=== PATIENT | male | born 1985 | race African-American/Black ===

== ENCOUNTER → 2019-06-19 | Outpatient (CLI) | payer OTHER ==
--- NOTE | 2019-06-19 12:55 | REP ---
Left knee five views: Mineralization and joint spaces are normal. There is no fracture or dislocation. There are no calcifications or foreign bodies. Questionable suprapatellar effusion. Impression: Questionable suprapatellar effusion, otherwise, negative left knee. Electronically Signed by Mitch Zabala MD 06/19/2019 12:46 P
== END ==
LOC: M LRY 12:28
PROVIDERS: ATTEND Physician Assistant
DX: S89.92XA Unspecified injury of left lower leg, initial encounter (principal); W18.30XA Fall on same level, unspecified, initial encounter; Y92.009 Unspecified place in unspecified non-institutional (private) residence as the place of occurrence of the external cause

== ENCOUNTER 2020-05-28 07:49 | Inpatient (IN) | payer OTHER ==
[~2020-05-28] VITALS: Ht 170.2 cm; Wt 85.6 kg
[2020-05-28] MEDS ORDERED: ACET1TAB16 PO (08:02)
[2020-05-28 08:52] LABS: BASO % 0.2 % (0.0-1.0); EOS # 0.1 10^3/uL (0.0-0.5); EOS % 1.2 % (0.0-3.0); HEMATOCRIT 46.2 % (42.0-52.0); HEMOGLOBIN 14.7 g/dl (13.5-17.5); LYMPH # 1.6 10^3/uL (1.5-5.0); LYMPH % 16.7 % (24.0-44.0); MEAN CORPUSCULAR HEMOGLOBIN 29.3 pg (27.0-33.0); MEAN CORPUSCULAR HGB CONC 31.8 g/dl (32.0-36.5); MONO # 0.7 10^3/uL (0.0-0.8); MONO % 7.8 % (0.0-5.0); NEUTROPHILS # 6.9 10^3/uL (1.5-8.5); NEUTROPHILS % 73.6 % (36.0-66.0); PLATELET COUNT, AUTOMATED 316 10^3/uL (150-450); RED BLOOD COUNT 5.02 10^6/uL (4.30-6.10); WHITE BLOOD COUNT 9.4 10^3/uL (4.0-10.0)
--- NOTE | 2020-05-28 09:02 | REP ---
INDICATION: hemoptysis, cough, recent knee surgery 05/25/2020 COMPARISON: None. TECHNIQUE: PA and lateral. FINDINGS: The mediastinum and cardiac silhouette are normal. The lung burch demonstrate diffuse bilateral opacities which appear to extend from the perihilar regions. Differential diagnosis includes pulmonary edema as well as multifocal pneumonia. Correlation is required. No effusion. No pneumothorax. IMPRESSION: Moderate to significant bilateral primarily perihilar opacities. <Electronically signed by Eloy Obregon > 05/28/20 [id number]
[2020-05-28 09:14] LABS: INR 1.02; PROTHROMBIN TIME 13.6 SECONDS (12.5-14.3)
[2020-05-28 09:16] LABS: D-DIMER QUANT 1245.08 ng/ml (<500)
[2020-05-28 09:34] LABS: BLOOD UREA NITROGEN 12 MG/DL (7-18); CALCIUM LEVEL 9.2 MG/DL (8.5-10.1); CARBON DIOXIDE LEVEL 29 mmol/L (20-29); CHLORIDE LEVEL 103 MEQ/L (98-107); CREATININE FOR GFR 1.25 MG/DL (0.70-1.30); GLOMERULAR FILTRATION RATE > 60.0 (>60); GLUCOSE, FASTING 111 MG/DL (70-100); POTASSIUM SERUM 3.8 MEQ/L (3.5-5.1); SODIUM LEVEL 137 MEQ/L (136-145)
[2020-05-28 09:39] LABS: RSV AMPLIFICATION NEGATIVE (NEGATIVE)
[2020-05-28 09:53] LABS: PARTIAL THROMBOPLASTIN TIME 28.3 SECONDS (24.2-38.5)
[2020-05-28] MEDS ORDERED: cefTRIAXone SOD 2 GM in D5W MINI-BAG PLUS 50 ML IV ONE (10:00)
[2020-05-28] MEDS ORDERED: ACETAMINOPHEN 500 MG TAB PO ONE (10:00)
[2020-05-28] MEDS ORDERED: LevoFLOXacin IV 750 MG in IV 1 EA IV ONE (10:00)
[2020-05-28] MEDS ORDERED: ISOVUE-370 76% 100ML VIAL As Ordered ONE (10:04)
--- NOTE | 2020-05-28 10:29 | REP ---
INDICATION: hemoptyisis, ro PE, multifocal pneumonia xray, recent sx COMPARISON: None. TECHNIQUE: Axial contrast enhanced images from the thoracic inlet to the upper abdomen using pulmonary embolus technique with multiplanar re-formations. 75 ml Isovue 370 intravenous contrast material administered without complication. This CT examination was performed using the following dose reduction techniques: Automated exposure control, adjustment of mA and/or kv according to the patient's size, and use of iterative reconstruction technique. FINDINGS: Satisfactory enhancement of the pulmonary vasculature is achieved and acute pulmonary emboli are identified extending into the right middle lobe (series 401; image 79). Moderate to significant bilateral alveolar infiltrates in a predominantly perihilar/central distribution suggest pulmonary edema and pulmonary hemorrhage. No effusion. No pneumothorax. Tracheobronchial tree is patent. Mediastinum and cardiac silhouette are essentially normal. No cardiomegaly or pericardial effusion. No significant adenopathy. IMPRESSION: 1. Pulmonary emboli to the right middle lobe. 2. Diffuse bilateral alveolar opacities in a predominantly perihilar/central distribution suggesting pulmonary edema/hemorrhage versus acute multifocal pneumonia. <Electronically signed by Eloy Obregon > 05/28/20 [id number]
[2020-05-28] MEDS ORDERED: HEPARIN SOD (PORCINE) 5000UNITS/ML 1ML VIAL/SYRINGE IV ONE (11:00)
[2020-05-28] MEDS ORDERED: HEPARIN DRIP 25,000 UNITS in IV 1 EA IV SCH (11:00)
--- NOTE | 2020-05-28 12:43 | REP ---
INDICATION: known PE, per pulm see if further clots COMPARISON: None. TECHNIQUE: Meade scale and color Doppler evaluation bilateral lower extremities using linear high frequency transducer. FINDINGS: Ultrasound examination of the right and left lower extremity deep venous structures from the common femoral vein to the popliteal vein demonstrates normal compressibility flow and wave patterns in response to respiration and augmentation. There is no evidence for deep venous thrombosis. IMPRESSION: No evidence for deep venous thrombosis. <Electronically signed by Eloy Obregon > 05/28/20 [id number]
--- NOTE | 2020-05-28 12:50 | HPEPDOC ---
[facility] Medical History & Physical Date of Admission May 28, 2020 Date of Service: May 28, 2020 History and Physical CHIEF COMPLAINT: Shortness of breath HISTORY OF PRESENT ILLNESS: 34-year-old male presents for shortness of breath with cough and hemoptysis. He states he has been having left knee pain since about June 2019. This pain has not improved with conservative measures including physical therapy. As such, he underwent left knee surgery on 05/25/20. . He states immediately following surgery, he developed cough, shortness of breath and hemoptysis. This progressed to significant dyspnea on exertion, prompting him to present to the hospital. . He does note right posterolateral chest pain, pleuritic in nature. PAST MEDICAL HISTORY: asthma PAST SURGICAL HISTORY: recent right knee surgery - dr mccarty - 05/25/20 ALLERGIES: Please see below. REVIEW OF SYSTEMS: Negative except as per HPI HOME MEDICATIONS: Please see below. PHYSICAL EXAMINATION: VITAL SIGNS: See below General: NAD, lying comfortably in bed HEENT: NC/AT, EOMI Lungs: CTA B/L Heart: +S1S2, RRR Abd: soft, NT, +BS Ext: left knee bandages in place LABORATORY DATA: See below. MICROBIOLOGY: Please see below. A/P: 34 yo male with PMHx asthma, and recent left knee surgery on 05/25/20 presents for worsening shortness of breath with cough and hemoptysis, found to have multiple PE #PE - heparin gtt for now - admit to PCU/telemetry monitoring - if hemoptysis stabilizes, will likely transition to coumadin - to discuss with ortho - discussed with pulm - assistance appreciated - admit to monitor for worsening hemoptysis - continue with heparin gtt only 48 hours - lower extremity dopplers - no DVT - factor V leiden pending - coagulopathy workup as outpatient given acute thrombosis/anti-coagulation #left knee surgery - ortho c/s pending #DVT prophylaxis - as above Vital Signs Vital Signs Date Time Temp Pulse Resp B/P (MAP) Pulse Ox O2 Delivery O2 Flow Rate FiO2 05/28/20 11:03 98.3 70 16 147/88 (107) 98 Room Air Laboratory Data Labs 24H Laboratory Tests 2 05/28/20 08:36: Immature Granulocyte % (Auto) 0.5, Neutrophils (%) (Auto) 73.6H, Lymphocytes (%) (Auto) 16.7L, Monocytes (%) (Auto) 7.8H, Eosinophils (%) (Auto) 1.2, Basophils (%) (Auto) 0.2, Neutrophils # (Auto) 6.9, Lymphocytes # (Auto) 1.6, Monocytes # (Auto) 0.7, Eosinophils # (Auto) 0.1, Basophils # (Auto) 0.0, Nucleated Red Blood Cells % (auto) 0.0, Prothrombin Time 13.6, Prothromb Time International Ratio 1.02, Activated Partial Thromboplast Time 28.3, D-Dimer, Quantitative 1245.08H, Anion Gap 5L, Glomerular Filtration Rate > 60.0, Calcium Level 9.2 05/28/20 08:55: Coronavirus (COVID-19)(PCR) NEGATIVE, Influenza Type A (RT-PCR) NEGATIVE, Influenza Type B (RT-PCR) NEGATIVE, Respiratory Syncytial Virus (PCR) NEGATIVE CBC/BMP Laboratory Tests 05/28/20 08:36 Home Medications Scheduled PRN Acetaminophen with Codeine (Acetaminophen-Cod #3 Tablet) 1 Each Tablet, 1 TAB PO Q4H PRN for PAIN Allergies Coded Allergies: shellfish derived (Verified Allergy, Unknown, 05/28/20) HIVES A-FIB/CHADSVASC A-FIB History Current/History of A-Fib/PAF?: No ABBEY HDZ MD May 28, 2020 12:50
[2020-05-28 13:45] VITALS: BP 155/91
[2020-05-28] MEDS ORDERED: HEPARIN SOD (PORCINE) 5000UNITS/ML 1ML VIAL/SYRINGE IV PRN (13:45)
[2020-05-28] MEDS: HEPARIN DRIP 25,000 UNITS in IV 1 EA IV SCH ×2 (13:45→23:06)
[2020-05-28 16:00] VITALS: BP 132/81
--- NOTE | 2020-05-28 19:33 | ECGEPIP ---
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
[2020-05-28 20:00] VITALS: BP 136/88
[2020-05-29] VITALS: BP 121/73
[2020-05-29 04:00] VITALS: BP 128/75
[2020-05-29 05:40] LABS: HEMATOCRIT 43.5 % (42.0-52.0); HEMOGLOBIN 14.3 g/dl (13.5-17.5); MEAN CORPUSCULAR HEMOGLOBIN 29.9 pg (27.0-33.0); MEAN CORPUSCULAR HGB CONC 32.9 g/dl (32.0-36.5); MEAN CORPUSCULAR VOLUME 90.8 fl (80.0-96.0); PLATELET COUNT, AUTOMATED 320 10^3/uL (150-450); RED BLOOD COUNT 4.79 10^6/uL (4.30-6.10); WHITE BLOOD COUNT 7.9 10^3/uL (4.0-10.0)
[2020-05-29 06:12] LABS: ALBUMIN 3.1 GM/DL (3.2-5.2); ALT/SGPT 33 U/L (12-78); BILIRUBIN,TOTAL 0.7 MG/DL (0.2-1.0); BLOOD UREA NITROGEN 11 MG/DL (7-18); CALCIUM LEVEL 9.1 MG/DL (8.5-10.1); CARBON DIOXIDE LEVEL 29 MEQ/L (21-32); CHLORIDE LEVEL 105 MEQ/L (98-107); CREATININE FOR GFR 1.17 MG/DL (0.70-1.30); GLOMERULAR FILTRATION RATE > 60.0 (>60); GLUCOSE, FASTING 106 MG/DL (70-100); POTASSIUM SERUM 3.7 MEQ/L (3.5-5.1); SODIUM LEVEL 138 MEQ/L (136-145)
[2020-05-29 08:00] VITALS: BP 116/68
--- NOTE | 2020-05-29 08:19 | CR ---
CONSULTATION DATE: 05/28/2020 CHIEF COMPLAINT: Shortness of breath. 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 He had been having blood-tinges emesis that was getting progressively worse postoperatively. The surgery performed was a knee arthroscopy with removal of an osteophyte and was not complicated at the time of surgery. He apparently had an LMA intubation. Just after the surgery, there was a report he was having some blood tinged sputum, however this was felt likely to be secondary to LMA. Unfortunately, this continued through Friday and Friday and the reported to the Emergency Room for further evaluation where it was felt that he has a pulmonary embolism. The patient indicates he is not aware of any congenital clotting abnormality, never had a blood clot before. 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 He is not having much pain in the extremity. He has not had fever or chills. Summary reviewed and on the chart. Emergency Room notes and imaging reviewed. PHYSICAL EXAMINATION: GENERAL: He is alert, cooperative, mood and affect are appropriate. He is pleasant, he is not currently on supplemental oxygen. He does have a heparin drip going. EXTREMITIES: I took down the dressing. The left lower extremity is remarkably not swollen, no erythematous. No drainage. The calves are symmetrical. With deep palpation, there is no calf tenderness. No cord palpable. Palpation of the popliteal fossa, no tenderness. No cord palpable. There is not even trace edema around the ankles on either side. He does not seem to have a knee effusion. IMPRESSION: Pulmonary embolism in a 34-year-old gentleman after relatively minor surgery. RECOMMENDATIONS: He is being admitted to the Hospitalist service for management of anticoagulation. I talked to Dr. Langley about evaluating for Factor V Leiden deficiency or some other pathology as I have a very high suspicion he has some tendency to clot for some reason. I spoke with Dr. Langley on the telephone about this case as well as the ER. I spoke with the patient about his situation and he was comfortable with the plans. I reassured the patient that with treatment his prognosis his treatment is excellent. However, I cautioned he might need to be on anticoagulants forever.
[2020-05-29] MEDS: HEPARIN DRIP 25,000 UNITS in IV 1 EA IV SCH (09:46)
[2020-05-29 12:00] VITALS: BP 138/92
--- NOTE | 2020-05-29 12:50 | IPNPDOC ---
Text Note Date of Service The patient was seen on 05/29/20. NOTE Subjective: Should seen and examined at bedside. No acute overnight events reported. Patient states he is slowly feeling better. He is still having cough with hemoptysis. He denies shortness of breath. Objective: VITAL SIGNS: See below General: NAD, lying comfortably in bed HEENT: NC/AT, EOMI Lungs: CTA B/L Heart: +S1S2, RRR Abd: soft, NT, +BS Ext: left knee bandages in place A/P: 34 yo male with PMHx asthma, and recent left knee surgery on 05/25/20 presents for worsening shortness of breath with cough and hemoptysis, found to have multiple PE. #PE with pulmonary hemorrhage - heparin gtt for now - still with hemoptysis - H/H stable - discussed with pulm - assistance appreciated - admit to monitor for worsening hemoptysis - continue with heparin gtt - if continues to improve can transition to oral - lower extremity dopplers - no DVT - factor V leiden pending - coagulopathy workup as outpatient given acute thrombosis/anti-coagulation #left knee surgery - ortho c/s appreciated #DVT prophylaxis - as above VS,Fishbone, I+O VS, Fishbone, I+O Laboratory Tests 05/29/20 05:21 Vital Signs Date Time Temp Pulse Resp B/P (MAP) Pulse Ox O2 Delivery O2 Flow Rate FiO2 05/29/20 08:00 97.3 68 18 116/68 (84) 98 Room Air I&O- Last 24 Hours up to 6 AM 05/29/20 06:00 Intake Total 1460 ml Output Total 550 ml Balance 910 ml ABBEY HDZ MD May 29, 2020 12:50
--- NOTE | 2020-05-29 15:23 | IPN ---
PROGRESS NOTE DATE: 05/29/2020 SUBJECTIVE: The patient was admitted with a recent PE. He is postop from an arthroscopy on 05/25/2020. Apparently, the ultrasounds of his legs were negative. Clinically he is doing well .He is comfortable on blood thinners now. PHYSICAL EXAMINATION: His knee looks completely benign. There is no significant swelling. No obvious redness. He is grossly neurologically intact with foot and ankle range of motion. ASSESSMENT: I discussed this with the patient and his who is on the phone and this workup will be carried out by the medical doctors in terms of how best to manage this in terms of blood thinners and duration. Apparently, he is being worked up for Factor V Leiden deficiency as well. I am glad that he is clinically doing well and this was not a more serious event for him and I relayed that to he and his . Will check him back in the office in a few days for a recheck.
[2020-05-29 16:00] VITALS: BP 144/91
[2020-05-29 20:00] VITALS: BP 158/82
[2020-05-29 20:21] LABS: INR 0.99; PROTHROMBIN TIME 13.3 SECONDS (12.5-14.3)
[2020-05-29 20:23] LABS: PARTIAL THROMBOPLASTIN TIME 57.3 SECONDS (24.2-38.5)
[2020-05-30] VITALS: BP 138/80
[2020-05-30 04:00] VITALS: BP 133/79
[2020-05-30 08:00] VITALS: BP 143/89
[2020-05-30] MEDS: ENOXAPARIN 100MG/1ML SYRINGE (J1650 PER 10MG) SC SCH ×2 (09:59→21:16)
[2020-05-30 11:00] LABS: INR 0.99; PROTHROMBIN TIME 13.3 SECONDS (12.5-14.3)
[2020-05-30 11:01] LABS: PARTIAL THROMBOPLASTIN TIME 45.1 SECONDS (24.2-38.5)
[2020-05-30 12:00] VITALS: BP 144/78
[2020-05-30 16:00] VITALS: BP 149/82
[2020-05-30] MEDS ORDERED: WARFARIN SOD 5MG TAB PO ONE (17:00)
--- NOTE | 2020-05-30 19:40 | IPNPDOC ---
Date Seen The patient was seen on 05/30/20. Progress Note SUBJECTIVE: No hemoptysis over past [address] hours[address] Discuss[address] case [address] Jacinto, starting on coumadin, lovenox today. Denies incr chest pain, shortness of breath, cough, fevers and chills. OBJECTIVE PHYSICAL EXAM: VITAL SIGNS: See below General: NAD, lying comfortably in bed HEENT: NC/AT, EOMI Lungs: CTA B/L Heart: +S1S2, RRR Abd: soft, NT, +BS Ext: left knee bandages in place A/P: 34 yo male with PMHx asthma, and recent left knee surgery on 05/25/20 presents for worsening shortness of breath with cough and hemoptysis, found to have multiple PE. #Pulmonary emboli likely provoked with recent knee surgery; however, cannot r/o other cause at this time. Complicated by pulmonary hemorrhage -H/H stable, no s/s of bleeding further -Lower ext doppler: no DVT -Stopped heparin gtt, started on coumadin and lovenox today -F/u daily INR/PT, CBC -Coagulopathy workup as outpatient given acute thrombosis/anti-coagulation -Discussed with Dr. Jacinto (pulmonary)- curbsided #Left knee surgery -Ortho has seen -Recommend f/u after d/c #DVT prophylaxis - lovenox BID and coumadin DISPOSITION: Plan is discharge home when INR therapeutic 2-3 for 1-2 days. VS, I&O, 24H, Fishbone Vital Signs/I&O Vital Signs Date Time Temp Pulse Resp B/P (MAP) Pulse Ox O2 Delivery O2 Flow Rate FiO2 05/30/20 16:00 96.8 73 18 149/82 (104) 95 Room Air I&O- Last 24 Hours up to 6 AM 05/30/20 06:00 Intake Total 890 ml Output Total 725 ml Balance 165 ml Laboratory Data 24H LABS Laboratory Tests 2 05/29/20 20:00: Prothrombin Time 13.3, Prothromb Time International Ratio 0.99, Activated Partial Thromboplast Time 57.3H 05/30/20 02:57: Activated Partial Thromboplast Time 70.5H 05/30/20 10:26: Prothrombin Time 13.3, Prothromb Time International Ratio 0.99, Activated Partial Thromboplast Time 45.1H Microbiology Microbiology 05/30/20 Stool Occult Blood (NEGAR) - Final, Complete Current Medications Current Medications Medications (Trade) Dose Ordered Sig/Yaritza Route PRN Reason Start Time Stop Time Status Last Admin Dose Admin Acetaminophen/ Codeine Phosphate (Tylenol/Codeine #3 Tablet) 1 ea Q4H PRN PO PAIN 05/28/20 11:30 Enoxaparin Sodium (Lovenox) 90 mg Q12H SC 05/30/20 09:00 05/30/20 09:59 Heparin Sodium (Porcine) (Heparin) ASDIRECTED PRN IV SEE LABEL COMMENTS 05/28/20 13:45 05/30/20 09:18 DC 05/29/20 06:29 Heparin Sodium (Porcine) 04931 units/IV Miscellaneous Supplies 250 ml @ 15.709 mls/ hr [id number] IV 05/28/20 11:00 05/28/20 13:33 DC 05/28/20 11:51 Heparin Sodium (Porcine) 51496 units/IV Miscellaneous Supplies 250 ml @ 9 mls/hr Q24H IV 05/28/20 13:32 05/30/20 09:18 DC 05/29/20 09:46 Home Med (Med Rec Complete!) ASDIRECTED XX 05/28/20 10:15 05/28/20 10:06 DC Non-Formulary Medication (Heparin Iv Rate Change Documentation ml/ Hr) ASDIRECTED XX 05/28/20 13:45 05/30/20 09:18 DC 05/29/20 20:44 Allergies Coded Allergies: shellfish derived (Verified Allergy, Unknown, 05/28/20) Jyotsna Madera MD May 30, 2020 19:40
[2020-05-30 20:00] VITALS: BP 145/81
[2020-05-31] VITALS (7 sets, daily range): BP systolic 118–153; BP diastolic 68–88
[2020-05-31 05:49] LABS: HEMATOCRIT 44.7 % (42.0-52.0); HEMOGLOBIN 14.3 g/dl (13.5-17.5); MEAN CORPUSCULAR HEMOGLOBIN 29.2 pg (27.0-33.0); MEAN CORPUSCULAR VOLUME 91.2 fl (80.0-96.0); PLATELET COUNT, AUTOMATED 365 10^3/uL (150-450); WHITE BLOOD COUNT 6.4 10^3/uL (4.0-10.0)
[2020-05-31 06:17] LABS: INR 1.08; PROTHROMBIN TIME 14.2 SECONDS (12.5-14.3)
[2020-05-31 06:18] LABS: PARTIAL THROMBOPLASTIN TIME 40.2 SECONDS (24.2-38.5)
[2020-05-31 06:21] LABS: ALBUMIN 3.5 GM/DL (3.2-5.2); ALT/SGPT 38 U/L (12-78); BILIRUBIN,TOTAL 0.5 MG/DL (0.2-1.0); BLOOD UREA NITROGEN 11 MG/DL (7-18); CALCIUM LEVEL 9.2 MG/DL (8.5-10.1); CARBON DIOXIDE LEVEL 28 MEQ/L (21-32); CHLORIDE LEVEL 105 MEQ/L (98-107); CREATININE FOR GFR 1.14 MG/DL (0.70-1.30); GLOMERULAR FILTRATION RATE > 60.0 (>60); GLUCOSE, FASTING 117 MG/DL (70-100); POTASSIUM SERUM 3.9 MEQ/L (3.5-5.1); SODIUM LEVEL 138 MEQ/L (136-145)
[2020-05-31] MEDS: ENOXAPARIN 100MG/1ML SYRINGE (J1650 PER 10MG) SC SCH ×2 (08:40→21:39)
[2020-05-31] MEDS: ACETAMINOPH W/CODEINE #3 TAB UD PO PRN ×3 (13:15→21:40)
[2020-05-31] MEDS ORDERED: WARFARIN SOD 5MG TAB PO ONE (17:00)
--- NOTE | 2020-05-31 18:01 | IPNPDOC ---
Date Seen The patient was seen on 05/31/20. Progress Note SUBJECTIVE: No s/s of bleeding, tolerating lovenox and coumadin well. INR subtherapeutic as expected, following daily. Ambulating well, pleuritic chest pain improving. Denies incr shortness of breath, cough, fevers and chills. OBJECTIVE PHYSICAL EXAM: VITAL SIGNS: See below General: NAD, lying comfortably in bed HEENT: NC/AT, EOMI Lungs: CTA B/L Heart: +S1S2, RRR Abd: soft, NT, +BS Ext: left knee bandages in place, no increased lower ext swelling Psych: Mood and affect normal LABORATORY: Please see below MICROBIOLOGY: None IMAGING: Lower ext doppler: No evidence for deep venous thrombosis. ASSESSMENT: 34 yo male with PMHx asthma, and recent left knee surgery on 05/25/20 presents for worsening shortness of breath with cough and hemoptysis, found to have multiple PE. PLAN: #Pulmonary emboli likely provoked with recent knee surgery; however, cannot r/o other cause at this time. Complicated by pulmonary hemorrhage -No s/s of bleeding -Tolerating coumadin, lovenox well. Pleuritic pain improving -Saturating well on RA -To get another 10 mg coumadin this evening -F/u daily INR -C/w therapeutic dosing Lovenox BID -Coagulopathy workup ordered, will likely need to be f/u by o/p PCP. -Discussed with Dr. Jacinto (pulmonary)- curbsided #Left knee surgery -Ortho has seen while here -Recommend f/u after d/c #DVT prophylaxis - lovenox BID and coumadin DISPOSITION: Plan is discharge home when INR therapeutic 2-3 for 1-2 days. VS, I&O, 24H, Fishbone Vital Signs/I&O Vital Signs Date Time Temp Pulse Resp B/P (MAP) Pulse Ox O2 Delivery O2 Flow Rate FiO2 05/31/20 17:30 20 05/31/20 15:42 98.2 63 132/88 (103) 100 Room Air I&O- Last 24 Hours up to 6 AM 05/31/20 06:00 Intake Total 900 ml Output Total 0 ml Balance 900 ml Laboratory Data 24H LABS Laboratory Tests 2 05/31/20 05:36: Nucleated Red Blood Cells % (auto) 0.0, Prothrombin Time 14.2H, Prothromb Time International Ratio 1.08, Activated Partial Thromboplast Time 40.2H, Anion Gap 5L, Glomerular Filtration Rate > 60.0, Calcium Level 9.2, Total Bilirubin 0.5, Aspartate Amino Transf (AST/SGOT) 23, Alanine Aminotransferase (ALT/SGPT) 38, A lkaline Phosphatase 88, Total Protein 7.0, Albumin 3.5, Albumin/Globulin Ratio 1.0 CBC/BMP Laboratory Tests 05/31/20 05:36 Microbiology Microbiology 05/30/20 Stool Occult Blood (NEGAR) - Final, Complete Current Medications Current Medications Medications (Trade) Dose Ordered Sig/Yaritza Route PRN Reason Start Time Stop Time Status Last Admin Dose Admin Acetaminophen/ Codeine Phosphate (Tylenol/Codeine #3 Tablet) 1 ea Q4H PRN PO PAIN 05/28/20 11:30 05/31/20 17:30 Enoxaparin Sodium (Lovenox) 90 mg Q12H SC 05/30/20 09:00 05/31/20 08:40 Heparin Sodium (Porcine) (Heparin) ASDIRECTED PRN IV SEE LABEL COMMENTS 05/28/20 13:45 05/30/20 09:18 DC 05/29/20 06:29 Heparin Sodium (Porcine) 53013 units/IV Miscellaneous Supplies 250 ml @ 15.709 mls/ hr [id number] IV 05/28/20 11:00 05/28/20 13:33 DC 05/28/20 11:51 Heparin Sodium (Porcine) 32640 units/IV Miscellaneous Supplies 250 ml @ 9 mls/hr Q24H IV 05/28/20 13:32 05/30/20 09:18 DC 05/29/20 09:46 Home Med (Med Rec Complete!) ASDIRECTED XX 05/28/20 10:15 05/28/20 10:06 DC Non-Formulary Medication (Heparin Iv Rate Change Documentation ml/ Hr) ASDIRECTED XX 05/28/20 13:45 05/30/20 09:18 DC 05/29/20 20:44 Allergies Coded Allergies: shellfish derived (Verified Allergy, Unknown, 05/28/20) Jyotsna Madera MD May 31, 2020 18:01
[2020-06-01] VITALS: BP 144/78
[2020-06-01 04:00] VITALS: BP 140/78
[2020-06-01] MEDS: ACETAMINOPH W/CODEINE #3 TAB UD PO PRN ×2 (05:35→10:27)
[2020-06-01 06:46] LABS: HEMATOCRIT 43.8 % (42.0-52.0); HEMOGLOBIN 14.5 g/dl (13.5-17.5); MEAN CORPUSCULAR HEMOGLOBIN 30.2 pg (27.0-33.0); MEAN CORPUSCULAR HGB CONC 33.1 g/dl (32.0-36.5); MEAN CORPUSCULAR VOLUME 91.3 fl (80.0-96.0); PLATELET COUNT, AUTOMATED 338 10^3/uL (150-450); WHITE BLOOD COUNT 8.9 10^3/uL (4.0-10.0)
[2020-06-01 07:16] LABS: ALBUMIN 3.6 GM/DL (3.2-5.2); ALT/SGPT 88 U/L (12-78); BILIRUBIN,TOTAL 0.4 MG/DL (0.2-1.0); BLOOD UREA NITROGEN 10 MG/DL (7-18); CALCIUM LEVEL 9.2 MG/DL (8.5-10.1); CARBON DIOXIDE LEVEL 29 MEQ/L (21-32); CHLORIDE LEVEL 103 MEQ/L (98-107); CREATININE FOR GFR 1.17 MG/DL (0.70-1.30); GLOMERULAR FILTRATION RATE > 60.0 (>60); GLUCOSE, FASTING 114 MG/DL (70-100); POTASSIUM SERUM 3.8 MEQ/L (3.5-5.1); SODIUM LEVEL 137 MEQ/L (136-145); TOTAL PROTEIN 7.2 GM/DL (6.4-8.2)
[2020-06-01 07:17] LABS: INR 1.87; PROTHROMBIN TIME 21.9 SECONDS (12.5-14.3)
[2020-06-01 07:18] LABS: PARTIAL THROMBOPLASTIN TIME 48.1 SECONDS (24.2-38.5)
[2020-06-01 07:55] VITALS: BP 144/67
[2020-06-01] MEDS: ENOXAPARIN 100MG/1ML SYRINGE (J1650 PER 10MG) SC SCH ×2 (08:25→20:16)
[2020-06-01] MEDS ORDERED: MIRALAX *UNIT DOSE* 17GM PACKET PO PRN ×2 (10:45→11:00)
[2020-06-01] MEDS ORDERED: PERCOCET 5MG/325MG TAB PO PRN (10:45)
[2020-06-01] MEDS: DOCUSATE SODIUM 100MG CAPSULE PO SCH ×2 (11:37→20:16)
[2020-06-01 12:20] VITALS: BP 150/98
[2020-06-01 14:00] VITALS: BP 130/87
[2020-06-01] MEDS: PERCOCET 5MG/325MG TAB PO PRN ×2 (14:28→20:16)
[2020-06-01] MEDS ORDERED: WARFARIN SOD 5MG TAB PO ONE (17:00)
--- NOTE | 2020-06-01 18:17 | IPNPDOC ---
Date Seen The patient was seen on 06/01/20. Progress Note SUBJECTIVE: INR subtherapeutic but increasing daily, today 1.87. Complains of increased left knee pain, changed pain regimen and more controlled. Denies incr shortness of breath, cough, fevers and chills. OBJECTIVE: PHYSICAL EXAM: VITAL SIGNS: See below General: NAD, lying comfortably in bed HEENT: NC/AT, EOMI Lungs: CTA B/L Heart: +S1S2, RRR Abd: soft, NT, +BS Ext: left knee bandages in place, mild incr swelling of LLE but nonpitting Psych: Mood and affect normal LABORATORY: Please see below MICROBIOLOGY: None IMAGING: Lower ext doppler: No evidence for deep venous thrombosis. ASSESSMENT: 34 yo male with PMHx asthma, and recent left knee surgery on 05/25/20 presents for worsening shortness of breath with cough and hemoptysis, found to have multiple PE. PLAN: #Pulmonary emboli likely provoked with recent knee surgery; however, cannot r/o other cause at this time. Complicated by pulmonary hemorrhage -No s/s of bleeding -Tolerating coumadin, lovenox well. Pleuritic pain improving -Saturating well on RA -F/u daily INR -Coagulopathy workup ordered, will likely need to be f/u by o/p PCP. -C/w therapeutic dosing Lovenox BID, to get another 5 mg coumadin this evening -Discussed with Dr. Jacinto (pulmonary)- curbsided #Left knee surgery -Ortho has seen while here -Recommend f/u after d/c -Pain regimen adjusted today #DVT prophylaxis - lovenox BID and coumadin DISPOSITION: Plan is discharge home when INR therapeutic 2-3 for 1-2 days. VS, I&O, 24H, Fishbone Vital Signs/I&O Vital Signs Date Time Temp Pulse Resp B/P (MAP) Pulse Ox O2 Delivery O2 Flow Rate FiO2 06/01/20 15:05 18 06/01/20 14:00 98.7 66 130/87 (101) 96 Room Air I&O- Last 24 Hours up to 6 AM 06/01/20 06:00 Intake Total 1200 ml Output Total 700 ml Balance 500 ml Laboratory Data 24H LABS Laboratory Tests 2 06/01/20 06:19: Prothrombin Time 21.9H, Prothromb Time International Ratio 1.87, Activated Partial Thromboplast Time 48.1H 06/01/20 06:20: Nucleated Red Blood Cells % (auto) 0.0, Anion Gap 5L, Glomerular Filtration Rate > 60.0, Calcium Level 9.2, Total Bilirubin 0.4, Aspartate Amino Transf (A ST/SGOT) 62H, Alanine Aminotransferase (ALT/SGPT) 88H, Alkaline Phosphatase 90, Total Protein 7.2, Albumin 3.6, Albumin/Globulin Ratio 1.0 CBC/BMP Laboratory Tests 06/01/20 06:20 Microbiology Microbiology 05/30/20 Stool Occult Blood (NEGAR) - Final, Complete Current Medications Current Medications Medications (Trade) Dose Ordered Sig/Yaritza Route PRN Reason Start Time Stop Time Status Last Admin Dose Admin Acetaminophen/ Codeine Phosphate (Tylenol/Codeine #3 Tablet) 1 ea Q4H PRN PO PAIN 05/28/20 11:30 06/01/20 10:44 DC 06/01/20 10:27 Docusate Sodium (Colace) 100 mg BID PO 06/01/20 11:00 06/01/20 11:37 Docusate Sodium (Colace) 100 mg BID PO 06/01/20 21:00 UNV Enoxaparin Sodium (Lovenox) 90 mg Q12H SC 05/30/20 09:00 06/01/20 08:25 Heparin Sodium (Porcine) (Heparin) ASDIRECTED PRN IV SEE LABEL COMMENTS 05/28/20 13:45 05/30/20 09:18 DC 05/29/20 06:29 Heparin Sodium (Porcine) 79702 units/IV Miscellaneous Supplies 250 ml @ 15.709 mls/ hr [id number] IV 05/28/20 11:00 05/28/20 13:33 DC 05/28/20 11:51 Heparin Sodium (Porcine) 80867 units/IV Miscellaneous Supplies 250 ml @ 9 mls/hr Q24H IV 05/28/20 13:32 05/30/20 09:18 DC 05/29/20 09:46 Home Med (Med Rec Complete!) ASDIRECTED XX 05/28/20 10:15 05/28/20 10:06 DC Non-Formulary Medication (Heparin Iv Rate Change Documentation ml/ Hr) ASDIRECTED XX 05/28/20 13:45 05/30/20 09:18 DC 05/29/20 20:44 Oxycodone/ Acetaminophen (Percocet 5mg/ 325mg Tablet) 1 tab Q4HP PRN PO MODERATE PAIN (PS 5-7) 06/01/20 10:45 UNV Oxycodone/ Acetaminophen (Percocet 5mg/ 325mg Tablet) 1 tab Q4HP PRN PO MODERATE PAIN (PS 4-7) 06/01/20 11:00 06/01/20 14:28 Polyethylene Glycol (Miralax) 1 pkt DAILYPRN PRN PO CONSTIPATION 06/01/20 10:45 06/01/20 10:54 DC Polyethylene Glycol (Miralax) 1 pkt DAILYPRN PRN PO NO BM IN 24 HRS 06/01/20 11:00 Allergies Coded Allergies: shellfish derived (Verified Allergy, Unknown, 05/28/20) Jyotsna Madera MD Jun 01, 2020 18:17
[2020-06-01] MEDS ORDERED: DOCUSATE SODIUM 100MG CAPSULE PO SCH (21:00)
[2020-06-01 22:00] VITALS: BP 140/84
[2020-06-02] MEDS: PERCOCET 5MG/325MG TAB PO PRN ×4 (01:38→20:02)
[2020-06-02 06:00] VITALS: BP 128/90
[2020-06-02 06:34] LABS: HEMOGLOBIN 15.5 g/dl (13.5-17.5); MEAN CORPUSCULAR HEMOGLOBIN 29.9 pg (27.0-33.0); MEAN CORPUSCULAR VOLUME 90.6 fl (80.0-96.0); PLATELET COUNT, AUTOMATED 367 10^3/uL (150-450); RED BLOOD COUNT 5.19 10^6/uL (4.30-6.10); WHITE BLOOD COUNT 9.2 10^3/uL (4.0-10.0)
[2020-06-02 06:45] LABS: INR 2.79
[2020-06-02 06:46] LABS: PARTIAL THROMBOPLASTIN TIME 59.5 SECONDS (24.2-38.5)
[2020-06-02 06:59] LABS: ALBUMIN 3.6 GM/DL (3.2-5.2); ALT/SGPT 160 U/L (12-78); BILIRUBIN,TOTAL 0.4 MG/DL (0.2-1.0); BLOOD UREA NITROGEN 10 MG/DL (7-18); CALCIUM LEVEL 9.4 MG/DL (8.5-10.1); CARBON DIOXIDE LEVEL 29 MEQ/L (21-32); CHLORIDE LEVEL 101 MEQ/L (98-107); CREATININE FOR GFR 1.16 MG/DL (0.70-1.30); GLOMERULAR FILTRATION RATE > 60.0 (>60); GLUCOSE, FASTING 112 MG/DL (70-100); POTASSIUM SERUM 4.2 MEQ/L (3.5-5.1); SODIUM LEVEL 135 MEQ/L (136-145); TOTAL PROTEIN 7.3 GM/DL (6.4-8.2)
[2020-06-02] MEDS: ENOXAPARIN 100MG/1ML SYRINGE (J1650 PER 10MG) SC SCH (08:36)
[2020-06-02] MEDS: DOCUSATE SODIUM 100MG CAPSULE PO SCH ×2 (08:36→20:01)
[2020-06-02 11:08] LABS: ANTINUCLEAR ANTIBODIES DIRECT Negative (Negative); HOMOCYST(E)INE SERUM 8.9 umol/L (0.0-14.5)
[2020-06-02 14:00] VITALS: BP 140/74
[2020-06-02] MEDS ORDERED: WARFARIN SOD 2MG TAB PO SCH (17:00)
--- NOTE | 2020-06-02 17:42 | IPNPDOC ---
Date Seen The patient was seen on 06/02/20. Progress Note SUBJECTIVE: INR therapeutic today at 2.79, d/gerry lovenox today. F/u INR in AM. Left knee pain better controlled with pain meds. Denies incr shortness of breath, cough, fevers and chills. OBJECTIVE: PHYSICAL EXAM: VITAL SIGNS: See below General: NAD, lying comfortably in bed HEENT: NC/AT, EOMI Lungs: CTA B/L Heart: +S1S2, RRR Abd: soft, NT, +BS Ext: left knee bandages in place, decreased swelling of LLE Psych: Mood and affect normal LABORATORY: Please see below MICROBIOLOGY: None IMAGING: Lower ext doppler: No evidence for deep venous thrombosis. ASSESSMENT: 34 yo male with PMHx asthma, and recent left knee surgery on 05/25/20 presents for worsening shortness of breath with cough and hemoptysis, found to have multiple PE. PLAN: #Pulmonary emboli likely provoked with recent knee surgery; however, cannot r/o other cause at this time. Complicated by pulmonary hemorrhage -No s/s of bleeding -INR now therapeutic with coumadin at 2.79, stopped lovenox. -Saturating well on RA -F/u daily INR -Coagulopathy workup ordered, will likely need to be f/u by o/p PCP. -Holding tonight's dose as it may be likely he overshoots his goal of 2-3 by tomorrow. -Discussed with Dr. Jacinto (pulmonary)- curbsided #Left knee surgery -Ortho has seen while here -Recommend f/u after d/c -Pain regimen adjusted #DVT prophylaxis - coumadin DISPOSITION: Plan is discharge home when INR therapeutic 2-3 for 2 days. VS, I&O, 24H, Fishbone Vital Signs/I&O Vital Signs Date Time Temp Pulse Resp B/P (MAP) Pulse Ox O2 Delivery O2 Flow Rate FiO2 06/02/20 15:01 18 06/02/20 14:00 98.3 89 140/74 (96) 98 Room Air I&O- Last 24 Hours up to 6 AM 06/02/20 06:00 Intake Total 1410 ml Output Total 800 ml Balance 610 ml Laboratory Data 24H LABS Laboratory Tests 2 06/02/20 06:21: Nucleated Red Blood Cells % (auto) 0.0, Prothrombin Time 30.0H, Prothromb Time International Ratio 2.79, Activated Partial Thromboplast Time 59.5H, Anion Gap 5L, Glomerular Filtration Rate > 60.0, Calcium Level 9.4, Total Bilirubin 0.4, Aspartate Amino Transf (AST/SGOT) 104H, Alanine Aminotransferase (ALT/SGPT) 160H, Alkaline Phosphatase 97, Total Protein 7.3, Albumin 3.6, Albumin/Globulin Ratio 1.0 CBC/BMP Laboratory Tests 06/02/20 06:21 Microbiology Microbiology 05/30/20 Stool Occult Blood (NEGAR) - Final, Complete Current Medications Current Medications Medications (Trade) Dose Ordered Sig/Yaritza Route PRN Reason Start Time Stop Time Status Last Admin Dose Admin Acetaminophen/ Codeine Phosphate (Tylenol/Codeine #3 Tablet) 1 ea Q4H PRN PO PAIN 05/28/20 11:30 06/01/20 10:44 DC 06/01/20 10:27 Docusate Sodium (Colace) 100 mg BID PO 06/01/20 11:00 06/02/20 08:36 Docusate Sodium (Colace) 100 mg BID PO 06/01/20 21:00 UNV Enoxaparin Sodium (Lovenox) 90 mg Q12H SC 05/30/20 09:00 06/02/20 09:02 DC 06/02/20 08:36 Heparin Sodium (Porcine) (Heparin) ASDIRECTED PRN IV SEE LABEL COMMENTS 05/28/20 13:45 05/30/20 09:18 DC 05/29/20 06:29 Heparin Sodium (Porcine) 87782 units/IV Miscellaneous Supplies 250 ml @ 15.709 mls/ hr [id number] IV 05/28/20 11:00 05/28/20 13:33 DC 05/28/20 11:51 Heparin Sodium (Porcine) 57102 units/IV Miscellaneous Supplies 250 ml @ 9 mls/hr Q24H IV 05/28/20 13:32 05/30/20 09:18 DC 05/29/20 09:46 Home Med (Med Rec Complete!) ASDIRECTED XX 05/28/20 10:15 05/28/20 10:06 DC Non-Formulary Medication (Heparin Iv Rate Change Documentation ml/ Hr) ASDIRECTED XX 05/28/20 13:45 05/30/20 09:18 DC 05/29/20 20:44 Oxycodone/ Acetaminophen (Percocet 5mg/ 325mg Tablet) 1 tab Q4HP PRN PO MODERATE PAIN (PS 5-7) 06/01/20 10:45 UNV Oxycodone/ Acetaminophen (Percocet 5mg/ 325mg Tablet) 1 tab Q4HP PRN PO MODERATE PAIN (PS 4-7) 06/01/20 11:00 06/02/20 14:31 Polyethylene Glycol (Miralax) 1 pkt DAILYPRN PRN PO CONSTIPATION 06/01/20 10:45 06/01/20 10:54 DC Polyethylene Glycol (Miralax) 1 pkt DAILYPRN PRN PO NO BM IN 24 HRS 06/01/20 11:00 Warfarin Sodium (Coumadin) 2 mg DAILY@17 PO 06/02/20 17:00 Allergies Coded Allergies: shellfish derived (Verified Allergy, Unknown, 05/28/20) Jyotsna Madera MD Jun 02, 2020 17:42
[2020-06-02 22:00] VITALS: BP 138/84
[2020-06-03] MEDS: PERCOCET 5MG/325MG TAB PO PRN ×4 (01:53→21:32)
[2020-06-03 06:00] VITALS: BP 120/72
[2020-06-03 07:15] LABS: HEMATOCRIT 44.1 % (42.0-52.0); HEMOGLOBIN 14.4 g/dl (13.5-17.5); MEAN CORPUSCULAR HEMOGLOBIN 29.6 pg (27.0-33.0); MEAN CORPUSCULAR HGB CONC 32.7 g/dl (32.0-36.5); MEAN CORPUSCULAR VOLUME 90.6 fl (80.0-96.0); PLATELET COUNT, AUTOMATED 394 10^3/uL (150-450); RED BLOOD COUNT 4.87 10^6/uL (4.30-6.10); WHITE BLOOD COUNT 8.7 10^3/uL (4.0-10.0)
[2020-06-03 07:37] LABS: INR 1.95; PROTHROMBIN TIME 22.7 SECONDS (12.5-14.3)
[2020-06-03 07:38] LABS: PARTIAL THROMBOPLASTIN TIME 53.6 SECONDS (24.2-38.5)
[2020-06-03 07:42] LABS: ALBUMIN 3.6 GM/DL (3.2-5.2); ALT/SGPT 277 U/L (12-78); BILIRUBIN,TOTAL 0.4 MG/DL (0.2-1.0); BLOOD UREA NITROGEN 11 MG/DL (7-18); CALCIUM LEVEL 8.9 MG/DL (8.5-10.1); CARBON DIOXIDE LEVEL 27 MEQ/L (21-32); CHLORIDE LEVEL 101 MEQ/L (98-107); CREATININE FOR GFR 1.13 MG/DL (0.70-1.30); GLOMERULAR FILTRATION RATE > 60.0 (>60); GLUCOSE, FASTING 120 MG/DL (70-100); POTASSIUM SERUM 4.3 MEQ/L (3.5-5.1); SODIUM LEVEL 136 MEQ/L (136-145)
[2020-06-03] MEDS: DOCUSATE SODIUM 100MG CAPSULE PO SCH ×2 (08:13→20:05)
[2020-06-03] MEDS ORDERED: APIXABAN 5 MG TAB (ELIQUIS) PO SCH (09:00)
--- NOTE | 2020-06-03 09:59 | REP ---
INDICATION: recent pulmonary hemorrhage COMPARISON: 05/28/2020. TECHNIQUE: PA/Lateral FINDINGS: Lungs: Previously noted bilateral infiltrates have significantly improved with minimal residual infiltrates remaining. Heart: Normal in size. Mediastinum: Mediastinal silhouette unremarkable. Pleural angles: Unremarkable.. Bones and soft tissues: Unremarkable. IMPRESSION: Previously noted bilateral infiltrates have significantly improved with minimal residual infiltrates remaining. <Electronically signed by Mitch Meade > 06/03/20 [id number]
[2020-06-03] MEDS: NS 1,000 ML IV SCH ×2 (10:44→18:48)
[2020-06-03 13:09] LABS: ANTI THROMBIN 3 ANTIGEN IMMUNO 88 % (72-124); ANTI THROMBIN 3 FUNCT ACTIVITY 109 % (75-135); PROTEIN C FUNCTIONAL ACTIVITY 75 % (73-180); PROTEIN S FUNCTIONAL ACTIVITY 94 % (63-140)
[2020-06-03 14:00] VITALS: BP 154/95
[2020-06-03] MEDS ORDERED: WARFARIN SOD 5MG TAB PO SCH (17:00)
--- NOTE | 2020-06-03 19:12 | IPNPDOC ---
Date Seen The patient was seen on 06/03/20. Progress Note SUBJECTIVE: AST/ALT climbing over past several days, subtherapeutic today INR. Readdressed AC with pulmonary (Dr. lion) to see if we can possibly switch to other AC with liver enzymes incr, difficult to get therapeutic. CXR today looks much improved. Starting on eliquis 10 mg PO BID and will see how he tolerates it today. If no bleeding then likely d/c in the AM. Denies incr shortness of breath, cough, fevers and chills. OBJECTIVE: PHYSICAL EXAM: VITAL SIGNS: See below General: NAD, lying comfortably in bed HEENT: NC/AT, EOMI Lungs: CTA B/L Heart: +S1S2, RRR Abd: soft, NT, +BS Ext: left knee bandages in place, decreased swelling of LLE Psych: Mood and affect normal LABORATORY: Please see below MICROBIOLOGY: None IMAGING: Lower ext doppler: No evidence for deep venous thrombosis. ASSESSMENT: 34 yo male with PMHx asthma, and recent left knee surgery on 05/25/20 presents for worsening shortness of breath with cough and hemoptysis, found to have multiple PE. PLAN: #Pulmonary emboli likely provoked with recent knee surgery; however, cannot r/o other cause at this time. Complicated by pulmonary hemorrhage -No s/s of bleeding for >4 days now. -Switching to eliquis 10 mg PO BID x 7 days then to 5 mg PO BID. Decision to switch based off of incr AST/ALT, difficulty to get therapeutic on coumadin and the fact that he has not had any s/s of bleeding for 4 days now with improved CXR. -Saturating well on RA -Coagulopathy workup ordered, will likely need to be f/u by o/p PCP. -This admission, the case has been discussed with both Dr. Jacinto (pulmonary) and today Dr. Lion (pulmonary) #Transaminitis possibly 2/2 to coumadin -AST/ALT incr over past several day, currently 180/277 -No prior history of liver issues, began with coumadin use -Stopping coumadin, watching while on eliquis -Started on IVFs, f/u CMP in AM. #Left knee surgery -Ortho has seen while here -Recommend f/u after d/c -Pain regimen adjusted #DVT prophylaxis - Eliquis BID DISPOSITION: Plan is discharge home in the AM if no s/s of bleeding and improvement of CMP. VS, I&O, 24H, Fishbone Vital Signs/I&O Vital Signs Date Time Temp Pulse Resp B/P (MAP) Pulse Ox O2 Delivery O2 Flow Rate FiO2 06/03/20 15:05 18 06/03/20 14:00 98.8 87 154/95 (114) 99 Room Air I&O- Last 24 Hours up to 6 AM 06/03/20 06:00 Intake Total 3010 ml Output Total 1475 ml Balance 1535 ml Laboratory Data 24H LABS Laboratory Tests 2 06/03/20 06:46: Nucleated Red Blood Cells % (auto) 0.0, Prothrombin Time 22.7H, Prothromb Time International Ratio 1.95, Activated Partial Thromboplast Time 53.6H, Anion Gap 8, Glomerular Filtration Rate > 60.0, Calcium Level 8.9, Total Bilirubin 0.4, Aspartate Amino Transf (AST/SGOT) 180H, Alanine Aminotransferase (ALT/SGPT) 277H, Alkaline Phosphatase 109, Total Protein 7.0, Albumin 3.6, Albumin/Globulin Ratio 1.1 CBC/BMP Laboratory Tests 06/03/20 06:46 Microbiology Microbiology 05/30/20 Stool Occult Blood (NEGAR) - Final, Complete Current Medications Current Medications Medications (Trade) Dose Ordered Sig/Yaritza Route PRN Reason Start Time Stop Time Status Last Admin Dose Admin Acetaminophen/ Codeine Phosphate (Tylenol/Codeine #3 Tablet) 1 ea Q4H PRN PO PAIN 05/28/20 11:30 06/01/20 10:44 DC 06/01/20 10:27 Apixaban (Eliquis) 5 mg BID PO 06/03/20 09:00 06/03/20 10:30 Docusate Sodium (Colace) 100 mg BID PO 06/01/20 11:00 06/03/20 08:13 Docusate Sodium (Colace) 100 mg BID PO 06/01/20 21:00 UNV Enoxaparin Sodium (Lovenox) 90 mg Q12H SC 05/30/20 09:00 06/02/20 09:02 DC 06/02/20 08:36 Heparin Sodium (Porcine) (Heparin) ASDIRECTED PRN IV SEE LABEL COMMENTS 05/28/20 13:45 05/30/20 09:18 DC 05/29/20 06:29 Heparin Sodium (Porcine) 58954 units/IV Miscellaneous Supplies 250 ml @ 15.709 mls/ hr [id number] IV 05/28/20 11:00 05/28/20 13:33 DC 05/28/20 11:51 Heparin Sodium (Porcine) 72416 units/IV Miscellaneous Supplies 250 ml @ 9 mls/hr Q24H IV 05/28/20 13:32 05/30/20 09:18 DC 05/29/20 09:46 Home Med (Med Rec Complete!) ASDIRECTED XX 05/28/20 10:15 05/28/20 10:06 DC Non-Formulary Medication (Heparin Iv Rate Change Documentation ml/ Hr) ASDIRECTED XX 05/28/20 13:45 05/30/20 09:18 DC 05/29/20 20:44 Oxycodone/ Acetaminophen (Percocet 5mg/ 325mg Tablet) 1 tab Q4HP PRN PO MODERATE PAIN (PS 5-7) 06/01/20 10:45 UNV Oxycodone/ Acetaminophen (Percocet 5mg/ 325mg Tablet) 1 tab Q4HP PRN PO MODERATE PAIN (PS 4-7) 06/01/20 11:00 06/03/20 14:35 Polyethylene Glycol (Miralax) 1 pkt DAILYPRN PRN PO CONSTIPATION 06/01/20 10:45 06/01/20 10:54 DC Polyethylene Glycol (Miralax) 1 pkt DAILYPRN PRN PO NO BM IN 24 HRS 06/01/20 11:00 Sodium Chloride 1,000 ml @ 100 mls/hr Q10H IV 06/03/20 10:00 06/03/20 18:48 Warfarin Sodium (Coumadin) 2 mg DAILY@17 PO 06/02/20 17:00 06/03/20 09:23 DC Warfarin Sodium (Coumadin) 5 mg DAILY@17 PO 06/03/20 17:00 06/03/20 09:31 DC Allergies Coded Allergies: shellfish derived (Verified Allergy, Unknown, 05/28/20) Jyotsna Madera MD Jun 03, 2020 19:12
[2020-06-03] MEDS: APIXABAN 5 MG TAB (ELIQUIS) PO SCH (20:05)
[2020-06-03 22:00] VITALS: BP 124/78
[2020-06-04] MEDS: PERCOCET 5MG/325MG TAB PO PRN ×2 (05:45→12:27)
[2020-06-04] MEDS: NS 1,000 ML IV SCH (05:45)
[2020-06-04 06:00] VITALS: BP 132/68
[2020-06-04 07:19] LABS: HEMATOCRIT 40.3 % (42.0-52.0); HEMOGLOBIN 13.2 g/dl (13.5-17.5); MEAN CORPUSCULAR HEMOGLOBIN 30.1 pg (27.0-33.0); MEAN CORPUSCULAR HGB CONC 32.8 g/dl (32.0-36.5); PLATELET COUNT, AUTOMATED 369 10^3/uL (150-450); RED BLOOD COUNT 4.38 10^6/uL (4.30-6.10); WHITE BLOOD COUNT 7.8 10^3/uL (4.0-10.0)
[2020-06-04 07:51] LABS: ALBUMIN 3.2 GM/DL (3.2-5.2); ALT/SGPT 287 U/L (12-78); BILIRUBIN,TOTAL 0.5 MG/DL (0.2-1.0); BLOOD UREA NITROGEN 13 MG/DL (7-18); CALCIUM LEVEL 8.6 MG/DL (8.5-10.1); CARBON DIOXIDE LEVEL 28 MEQ/L (21-32); CHLORIDE LEVEL 103 MEQ/L (98-107); CREATININE FOR GFR 1.17 MG/DL (0.70-1.30); GLOMERULAR FILTRATION RATE > 60.0 (>60); GLUCOSE, FASTING 115 MG/DL (70-100); POTASSIUM SERUM 4.2 MEQ/L (3.5-5.1); SODIUM LEVEL 136 MEQ/L (136-145); TOTAL PROTEIN 6.5 GM/DL (6.4-8.2)
[2020-06-04] MEDS: APIXABAN 5 MG TAB (ELIQUIS) PO SCH (08:21)
[2020-06-04] MEDS: DOCUSATE SODIUM 100MG CAPSULE PO SCH (08:21)
[2020-06-04] MEDS ORDERED: DOK1CAP7 PO (08:30)
[2020-06-04] MEDS ORDERED: ELIQ5TAB PO (08:30)
--- NOTE | 2020-06-04 13:48 | DS.PDOC ---
Discharge Summary General Date of Admission May 28, 2020 at 11:38 Date of Discharge 06/04/20 Attending Physician: Jyotsna Main MD Discharge Summary HISTORY OF PRESENT ILLNESS: Patient is a 34-year-old male with PMH of asthma, left knee surgery 05/25/20 who presented on 05/28/20 to [facility] ER with shortness of breath, cough and hemoptysis. He states he has been having left knee pain since about June 2019. This pain has not improved with conservative measures including physical therapy and on 05/25/20 he underwent elective left knee surgery by Dr. Mccarty. He states immediately following surgery, he developed cough, shortness of breath and hemoptysis. This progressed to significant dyspnea on exertion, prompting him to present to the hospital. He noted right posterolateral chest pain, pleuritic in nature. In the ER, CTA chest showed pulmonary emboli to the right middle lobe, diffuse bilateral alveolar opacities in a predominantly perihilar/central distribution suggesting pulmonary edema/hemorrhage versus acute multifocal pneumonia. Patient was admitted to medicine service for further treatment. HOSPITAL COURSE: During hospital stay, patient was treated for pulmonary emboli likely provoked with recent knee surgery. This was complicated by pulmonary hemorrhage. He was started on heparin gtt and had mild hemoptysis for several days after admission. The hemoptysis stopped and patient was started on coumadin, as per recommendation by pulmonary along with lovenox. His pleuritic pain continued to improve and he remained stable off of O2. He would ambulate the halls well and breathing became easier. He was followed up by orthopedic surgery during his stay. After several days on coumadin, it was noted that his AST/ALT was beginning to increase gradually. Another discussion occurred with on-call shactor who agreed with stopping coumadin and transitioning while monitored here on eliquis BID for anticoagulation. This was done on 06/03/20. He was also started on IVFs to help with improvement of transaminitis. Repeat CXR on 06/03/20 showed much improved. By 06/04/20 patient had no hemoptysis, was on room air and AST/ALT was slightly improved and discharge was done. He is advised to follow up with either PCP or to sick call after this weekend to let them know he was just discharged from the hospital. He is advised to bring discharge paper work with him. They will need to follow CMP/liver enzymes with repeat labs this coming week AND also follow up on the hypercoagulable workup we started in the hospital- many labs are pending and will be back later this week for them to review. Risks of bleeding were discussed with patient and his on Facetime. He is to continue with eliquis twice daily after discharge. If he should have any coughing of blood, blood in stool or blood in urine, he is advised to let a medical professional know immediately. PAST MEDICAL HISTORY: Asthma PAST SURGICAL HISTORY: Recent left knee surgery - dr mccarty - 05/25/20 ALLERGIES: Please see below. DISCHARGE MEDICATIONS: Please see below. PHYSICAL EXAM: VITAL SIGNS: See below General: NAD, lying comfortably in bed HEENT: NC/AT, EOMI Lungs: CTA B/L Heart: +S1S2, RRR Abd: soft, NT, +BS Ext: left knee bandages in place, decreased swelling of LLE Psych: Mood and affect normal LABORATORY: Please see below MICROBIOLOGY: None IMAGING: CXR 06/03/20: Previously noted bilateral infiltrates have significantly improved with minimal residual infiltrates remaining. CTA chest 05/28/20: 1. Pulmonary emboli to the right middle lobe. 2. Diffuse bilateral alveolar opacities in a predominantly perihilar/central distribution suggesting pulmonary edema/hemorrhage versus acute multifocal pneumonia. Lower ext doppler: No evidence for deep venous thrombosis. ASSESSMENT: 34 yo male with PMHx asthma, and recent left knee surgery on 05/25/20 presents for worsening shortness of breath with cough and hemoptysis, found to have multiple PE, pulmonary hemorrhage. PLAN: #Pulmonary emboli likely provoked with recent knee surgery; however, cannot r/o other cause at this time. Complicated by pulmonary hemorrhage -No s/s of bleeding for >5 days now. -Saturating well on RA -Coagulopathy workup ordered, will likely need to be f/u by o/p PCP. -C/w eliquis 10 mg PO BID x 9 additional days then switch to 5 mg PO BID. Decision to switch based off of incr AST/ALT, difficulty to get therapeutic on coumadin and the fact that he has not had any s/s of bleeding for 5 days now with improved CXR. -This admission, the case has been discussed with both Dr. Jacinto (pulmonary) and Dr. Rosas (pulmonary) #Transaminitis possibly 2/2 to coumadin -AST/ALT slightly improved today -No prior history of liver issues, began with coumadin use -Stopping coumadin, continue to watch while on eliquis as this is hepatically cleared as well -Recommending repeat CMP by patient's provider after weekend, this coming week. -Encouraging hydration adequately throughout the day #Left knee surgery -Ortho has seen while here -Recommend f/u after d/c -Pain regimen adjusted #DVT prophylaxis - Eliquis BID DISPOSITION: Discharge to home today. REcommend close f/u with PCP after holiday weekend AND repeat CMP to monitor liver enzymes as instructed on d/c instructions. TIME SPENT ON DISCHARGE: Greater than 30 minutes. Vital Signs/I&Os Vital Signs Date Time Temp Pulse Resp B/P (MAP) Pulse Ox O2 Delivery O2 Flow Rate FiO2 06/04/20 12:57 18 06/04/20 06:00 98.6 94 132/68 (89) 98 Room Air I&O- Last 24 Hours up to 6 AM 06/04/20 06:00 Intake Total 3200 ml Output Total 1500 ml Balance 1700 ml Laboratory Data Labs 24H Laboratory Tests 2 06/04/20 07:03: Nucleated Red Blood Cells % (auto) 0.0, Anion Gap 5L, Glomerular Filtration Rate > 60.0, Calcium Level 8.6, Total Bilirubin 0.5, Aspartate Amino Transf (AST/ SGOT) 139H, Alanine Aminotransferase (ALT/SGPT) 287H, Alkaline Phosphatase 103, Total Protein 6.5, Albumin 3.2, Albumin/Globulin Ratio 1.0 CBC/BMP Laboratory Tests 06/04/20 07:03 Microbiology Microbiology 05/30/20 Stool Occult Blood (NEGAR) - Final, Complete Discharge Medications Scheduled Apixaban (Eliquis) 5 Mg Tablet, 10 MG PO BID Please take 10 mg (two pills) twice a day for 9 days. AFTER 9 DAYS, please switch to only taking 5 mg (1 pill) twice a day. Docusate Sodium (Dok) 100 Mg Capsule, 100 MG PO BID Scheduled PRN Acetaminophen with Codeine (Acetaminophen-Cod #3 Tablet) 1 Each Tablet, 1 TAB PO Q4H PRN for PAIN, (Reported) Allergies Coded Allergies: shellfish derived (Verified Allergy, Unknown, 05/28/20) Jyotsna Madera MD Jun 04, 2020 13:48
== END 2020-06-04 13:21 | disposition home or self-care (01) | DRG 176 ==
LOC: M ED 07:49 → M ED INP 11:38 → M PCU 13:39 → M MSPAV 06-01 12:12
PROVIDERS: ADMIT Internal Medicine; ATTEND Internal Medicine
DX: I26.94 Multiple subsegmental thrombotic pulmonary emboli without acute cor pulmonale (principal); R04.2 Hemoptysis; J45.909 Unspecified asthma, uncomplicated; Z91.013 Allergy to seafood; Z98.890 Other specified postprocedural states; R74.01 Elevation of levels of liver transaminase levels; T45.515A Adverse effect of anticoagulants, initial encounter

== ENCOUNTER → 2021-08-31 | Outpatient (REF) ==
[~2021-08-31] MED LIST: ACET300T48 PO; ALB2.5NEB INH; DOK1CAP4 PO; ELIQ5TAB PO; EPIN0.3I11; LISI10TA22 PO; PROAAER10 INH
== END ==
LOC: M PLAIMG 10:13
PROVIDERS: ATTEND Internal Medicine
DX: M19.90 Unspecified osteoarthritis, unspecified site (principal)